=== PATIENT | female | born 1975 | race Caucasian/White ===

== ENCOUNTER 2016-09-07 21:22 | Emergency (ER) | payer OTHER ==
[2016-09-07 21:29] VITALS: BP 114/73
[2016-09-07] MEDS ORDERED: NS 0.9% 1000 ML* 2,000 ML IV ONE (22:15)
[2016-09-07] MEDS ORDERED: Ketorolac INJ* 30 MG/ML 1 ML VIAL IV PUSH ONE (22:15)
[2016-09-07 22:56] LABS: Hematocrit 45 % (35-47); Hemoglobin 15.2 g/dl (12.0-16.0); Mean Corpuscular HGB Conc 34 g/dl (31-36); Mean Corpuscular Hemoglobin 31 pg (27-31); Mean Corpuscular Volume 92 fL (80-97); Mean Platelet Volume 9 um3 (7.4-10.4); Red Blood Count 4.89 10^6/ul (4.0-5.4); Red Cell Distribution Width 15 % (10.5-15); White Blood Count 9.5 10^3/ul (3.5-10.8)
--- NOTE | 2016-09-07 23:05 | RAD ---
INDICATION: Cough COMPARISON: Chest x-ray dated September 13, 2015 TECHNIQUE: PA and lateral views of the chest were obtained. FINDINGS: The heart and mediastinum are normal in size and contour. The lungs are grossly clear. There is no evidence of large pleural effusion. Visualized bones are normal for the patient's age. There is no radiographic evidence of free air beneath the diaphragm IMPRESSION: No radiographic evidence of acute cardiopulmonary disease.
[2016-09-07 23:11] LABS: ALT 36 U/L (7-52); Albumin 4.4 g/dL (3.2-5.2); Alkaline Phosphatase 116 U/L (34-104); Blood Urea Nitrogen 17 mg/dL (6-24); CO2 Carbon Dioxide 24 mmol/L (22-32); Calcium 9.8 mg/dL (8.6-10.3); Chloride 102 mmol/L (101-111); EGFR African American 101.2 (>60); EGFR Non-African American 78.7 (>60); Glucose 149 mg/dL (70-100); Lipase < 10 U/L (11.0-82.0); Sodium 134 mmol/L (133-145); Total Protein 7.4 g/dL (6.4-8.9)
[2016-09-07 23:15] LABS: Add Diff/Slide Review? Slide Review Added; Comments Flag Yes
--- NOTE | 2016-09-07 23:33 | ED ---
Abdominal Pain/Female - HPI Summary HPI Summary: 41 F presents with upper abdominal pain since Tuesday. She admits to anorexia, nausea, vomiting, and constipation. She denies any diarrhea or fevers. She also admits to running out of her inhaler so she has been wheezing more than normal. She also admits to a cough for the past couple days. She denies any dysuria or vaginal discharge. Her has a vasectomy so she denies being . She has had her gallbladder removed last January. She denies experiencing this pain before in the past. Daughter is sick with vomiting a couple days ago but no abdominal pain. - History of Current Complaint Chief Complaint: EDAbdPain Stated Complaint: VOMITING,ABD PAIN Time Seen by Provider: 09/07/16 22:03 Pain Intensity: 8 Allergies/Adverse Reactions: Allergies Allergy/AdvReac Type Severity Reaction Status Date / Time No Known Allergies Allergy Verified 03/14/16 15:14 PMH/Surg Hx/FS Hx/Imm Hx Endocrine/Hematology History: Denies: Hx Anticoagulant Therapy, Hx Diabetes, Hx Thyroid Disease Cardiovascular History: Denies: Hx Congestive Heart Failure, Hx Hypertension, Hx Pacemaker/ICD Respiratory History: Reports: Hx Asthma Denies: Hx Chronic Obstructive Pulmonary Disease (COPD) History: Denies: Hx Renal Disease Musculoskeletal History: Reports: Other Musculoskeletal History - left hip fx Sensory History: Denies: Hx Hearing Aid Neurological History: Denies: Hx Dementia, Hx Seizures Psychiatric History: Reports: Hx Substance Abuse Denies: Hx Panic Disorder - Surgical History Surgery Procedure, Year, and Place: DECEMBER 2015 Infectious Disease History: No Infectious Disease History: Denies: Hx Hepatitis, Hx Human Immunodeficiency Virus (HIV), Traveled Outside the [place] in Last 30 Days - Family History Known Family History: Positive: None Family History: R & n/C - Social History Alcohol Use: None Alcohol Amount: no alcohol use per pt report Hx Substance Use: No Substance Use Type: Reports: Heroin Substance Use Comment - Amount & Last Used: last use may Hx Tobacco Use: Yes Smoking Status (MU): Heavy Every Day Tobacco Smoker Type: Cigarettes Have You Smoked in the Last Year: Yes Review of Systems Negative: Fever Negative: Chest Pain Positive: Cough. Negative: Shortness Of Breath Positive: Abdominal Pain, Vomiting, Nausea. Negative: Diarrhea All Other Systems Reviewed And Are Negative: Yes Physical Exam Triage Information Reviewed: Yes Vital Signs On Initial Exam: Initial Vitals Temp Pulse Resp BP Pulse Ox 99.5 F 94 19 114/73 100 09/07/16 21:27 09/07/16 21:27 09/07/16 21:27 09/07/16 21:27 09/07/16 21:27 Vital Signs Reviewed: Yes Appearance: Positive: Well-Appearing Skin: Positive: Warm, Dry Head/Face: Positive: Normal Head/Face Inspection Eyes: Positive: Normal, Conjunctiva Clear ENT: Positive: Normal ENT inspection, Pharynx normal, TMs normal Respiratory/Lung Sounds: Positive: Clear to Auscultation, Breath Sounds Present Cardiovascular: Positive: Normal, RRR Abdomen Description: Positive: Soft, Other: - moderate tenderness across upper abdomen. Negative: Guarding Bowel Sounds: Positive: Present - Javier Coma Scale Coma Scale Total: 15 Diagnostics - Vital Signs Vital Signs Temp Pulse Resp BP Pulse Ox 09/07/16 21:27 99.5 F 94 19 114/73 100 - Laboratory Lab Results: Lab Results 09/07/16 09/07/16 09/07/16 Range/Units 22:45 22:45 22:45 WBC 9.5 (3.5-10.8) 10^3/ul RBC 4.89 (4.0-5.4) 10^6/ul Hgb 15.2 (12.0-16.0) g/dl Hct 45 (35-47) % MCV 92 (80-97) fL MCH 31 (27-31) pg MCHC 34 (31-36) g/dl RDW 15 (10.5-15) % Plt Count 265 (150-450) 10^3/ul MPV 9 (7.4-10.4) um3 Neut % (Auto) 72.3 (38-83) % Lymph % (Auto) 21.1 L (25-47) % [place] % (Auto) 4.9 (1-9) % Eos % (Auto) 0.1 (0-6) % Baso % (Auto) 1.6 (0-2) % Absolute Neuts (auto) 6.9 (1.5-7.7) 10^3/ul Absolute Lymphs (auto) 2.0 (1.0-4.8) 10^3/ul Absolute Monos (auto) 0.5 (0-0.8) 10^3/ul Absolute Eos (auto) 0 (0-0.6) 10^3/ul Absolute Basos (auto) 0.1 (0-0.2) 10^3/ul Absolute Nucleated RBC 0.01 10^3/ul Nucleated RBC % 0.1 Sodium 134 (133-145) mmol/L Potassium TNP Chloride 102 (101-111) mmol/L Carbon Dioxide 24 (22-32) mmol/L Anion Gap TNP BUN 17 (6-24) mg/dL Creatinine 0.81 (0.51-0.95) mg/dL Est GFR ( Amer) 101.2 (>60) Est GFR (Non-Af Amer) 78.7 (>60) BUN/Creatinine Ratio 21.0 H (8-20) Glucose 149 H (70-100) mg/dL Lactic Acid 0.9 (0.5-2.0) mmol/L Calcium 9.8 (8.6-10.3) mg/dL Total Bilirubin 0.40 (0.2-1.0) mg/dL AST TNP ALT 36 (7-52) U/L Alkaline Phosphatase 116 H (34-104) U/L C-React Prot High Sens 5.02 mg/L Total Protein 7.4 (6.4-8.9) g/dL Albumin 4.4 (3.2-5.2) g/dL Globulin 3.0 (2-4) g/dL Albumin/Globulin Ratio 1.5 (1-3) Lipase < 10 L (11.0-82.0) U/L Result Diagrams: 09/07/16 22:45 09/08/16 01:11 Lab Statement: Any lab studies that have been ordered have been reviewed, and results considered in the medical decision making process. - CT abdomen CT Interpretation: No Acute Changes - no inflammatory process identified in abdomen or pelvix, prominent left adnexal cyst, no adominal masses or collection seen CT Interpretation Completed By: Radiologist Abdominal Pain Fem Course/Dx - Course Course Of Treatment: 41 F presents with upper abdominal pain, nausea and vomiting since Tuesday, states that daughter had vomiting but no adominal pain, on exam tenderness in upper abdominal with no rebound tenderness, ordered labs which were normal and CT which was normal does have adnexeal cyst but that is not were pain is, explained results to patient and patient agrees with plan - Diagnoses Differential Diagnosis: Positive: Gall Bladder Disease, Pancreatitis, Peptic Ulcer Disease Provider Diagnoses: Upper abdominal pain, Nausea and vomiting Discharge - Discharge Plan Condition: Good Disposition: HOME Prescriptions: Ondansetron TAB* [Zofran Tab*] 4 mg PO Q6H PRN #8 tab PRN Reason: Nausea Patient Education Materials: Acute Abdominal Pain (ED) Referrals: Lisa Blake MD [Primary Care Provider] - Additional Instructions: Your pain is not caused by any surgical emergency Use zofran for nausea and vomiting every 6 hours as needed Drink small amounts of fluid as tolerated When able to eat follow BRAT diet: Bananas, rice, applesauce, toast Take ibuprofen or Tylenol for pain as needed every 6 hours Follow up with primary within 5 days Return to ED if develop fever that does not respond to Tylenol or ibuprofen, severe abdominal pain, or any new or worsening symptoms
[2016-09-08] MEDS ORDERED: Ketorolac INJ* 30 MG/ML 1 ML VIAL IV PUSH ONE (01:22)
[2016-09-08] MEDS ORDERED: Iohexol 300* (CONTRAST) 10 ML SDV IV ONE (02:20)
[2016-09-08] MEDS ORDERED: Ondansetron ODT TAB* 4 MG PO ONE (02:59)
--- NOTE | 2016-09-08 08:24 | RAD ---
INDICATION: Abdominal pain. Fever. COMPARISON: CT January 12, 2016 TECHNIQUE: Axial source images were obtained from the hemidiaphragms to the symphysis pubis following administration of oral and intravenous contrast. 81 mL Omnipaque 300 was utilized. Coronal and sagittal reconstructed images were acquired. Lung bases: There is minimal linear change in the left lung base likely representing atelectasis. Liver: The liver is normal in size. There are no masses. There is no ductal dilatation. Gallbladder: Cholecystectomy. Spleen: The spleen is normal in size. There are no masses. Pancreas: There is no focal pancreatic mass or ductal dilatation. Adrenal glands: There is no evidence of adrenal mass. Kidneys: The kidneys are normal in size and position. There are prompt nephrograms and there is prompt excretion bilaterally. There are no renal parenchymal masses. There is a nonobstructive 1 to 2 mm lower pole right renal calculus. Adenopathy: There is no evidence of adenopathy by size criteria. Fluid collections: There are no free or localized fluid collections. Vessels:There are no significant atherosclerotic changes involving the aorta. There is no focal aneurysm. The iliac vessels are normal in caliber. The IVC appears normal. GI tract: There are no acute CT bowel findings. There is no obstruction. The stomach and small bowel appear normal. The lower GI tract is normal. The cecum, ileocecal valve, and terminal ileum appear normal. The appendix is visualized and appear normal. Pelvic organs: The uterus and right adnexa are unremarkable. There is a 3.6 and regular left adnexal cyst Bladder: There are no bladder masses. Abdominal and pelvic soft tissues: The extraperitoneal abdominal and pelvic soft tissues appear normal.. Osseous structures: There are no acute osseous findings. Other: None IMPRESSION: 1. Minimal left basilar atelectasis 2. Cholecystectomy. 3. No acute inflammatory process. 4. 3.6 cm left adnexal cyst. Suggest follow-up ultrasonography
== END 2016-09-08 03:45 | disposition home or self-care (01) ==
LOC: ED 21:22
DX: R10.10 Upper abdominal pain, unspecified (principal); R11.2 Nausea with vomiting, unspecified; F17.210 Nicotine dependence, cigarettes, uncomplicated
CPT/HCPCS: 36415; 71020; 74177; 80053; 83605; 83690; 85025; 86141; 86703; 96360; 96374; 96376; 99283; A9270-GY; J1885; Q9967

== ENCOUNTER 2016-09-09 04:10 | Emergency (ER) | payer OTHER ==
[2016-09-09] MEDS ORDERED: Al Hydrox/Mg Hydrox/Simet LIQ* 30 ML UDC PO ONE ×2 (04:36→11:57)
[2016-09-09] MEDS ORDERED: Lidocaine 2% VISCOUS* 15 ML UDC PO ONE (04:36)
[2016-09-09] MEDS ORDERED: NS 0.9% 1000 ML* 2,000 ML IV ONE (04:36)
[2016-09-09] MEDS ORDERED: Pantoprazole IV* 40 MG IV ONE (04:36)
[2016-09-09] MEDS ORDERED: Ondansetron INJ* 2 MG/ML VIAL IV ONE ×3 (04:36→08:23)
[2016-09-09 05:03] LABS: Hematocrit 45 % (35-47); Mean Corpuscular HGB Conc 34 g/dl (31-36); Mean Corpuscular Hemoglobin 31 pg (27-31); Mean Corpuscular Volume 92 fL (80-97); Mean Platelet Volume 9 um3 (7.4-10.4); Red Blood Count 4.87 10^6/ul (4.0-5.4); Red Cell Distribution Width 15 % (10.5-15); White Blood Count 12.7 10^3/ul (3.5-10.8)
[2016-09-09 05:07] LABS: ALT 27 U/L (7-52); AST 17 U/L (13-39); Albumin 4.2 g/dL (3.2-5.2); Alkaline Phosphatase 106 U/L (34-104); Anion Gap 10 mmol/L (2-11); BUN/Creatinine Ratio 21.9 (8-20); Blood Urea Nitrogen 23 mg/dL (6-24); C Reactive Protein 3.45 mg/L (< 5.00); CO2 Carbon Dioxide 28 mmol/L (22-32); Calcium 9.4 mg/dL (8.6-10.3); Chloride 99 mmol/L (101-111); EGFR Non-African American 58.3 (>60); Globulin 3.2 g/dL (2-4); Glucose 108 mg/dL (70-100); Lipase 18 U/L (11.0-82.0); Potassium 3.7 mmol/L (3.5-5.0); Sodium 137 mmol/L (133-145); Total Protein 7.4 g/dL (6.4-8.9)
[2016-09-09] MEDS ORDERED: Ketorolac INJ* 30 MG/ML 1 ML VIAL IV ONE (06:51)
[2016-09-09] MEDS ORDERED: Iodixanol* (CONTRAST) 320 MG/ML 100 ML SDV IV ONE (07:53)
[2016-09-09] MEDS ORDERED: Ondansetron INJ* 2 MG/ML VIAL ONE (08:14)
[2016-09-09] MEDS ORDERED: Ketorolac INJ* 30 MG/ML 1 ML VIAL IV PUSH ONE (10:19)
[2016-09-09] MEDS ORDERED: Metoclopramide IV* 5 MG/ML 2 ML VIAL IV ONE (10:19)
--- NOTE | 2016-09-09 11:28 | RAD ---
INDICATION: Abdominal pain COMPARISON: CT previous day TECHNIQUE: Noncontrast axial source images were acquired from the level hemidiaphragms to the symphysis pubis pubis. There is no IV contrast due to difficulty with the IV. There is residual contrast within the colon from yesterday's examination. Lung bases: The lung bases are clear. Liver: The liver is normal in size. Noncontrast imaging shows no evidence of a hepatic mass or ductal dilatation. Gallbladder: Cholecystectomy. Spleen: The spleen is normal in size. The noncontrast CT appearance is normal. Pancreas: Noncontrast imaging shows no pancreatic mass or ductal dilitation. Adrenal glands: No masses are identified. Kidneys/Bladder: There is a 1 mm, nonobstructive lower pole right renal calculus. CT evidence of hydronephrosis. Noncontrast imaging shows no evidence of a renal mass. The bladder is unremarkable.. Adenopathy: There is no evidence of intraperitoneal or retroperitoneal adenopathy. Evaluation is limited without oral contrast. Fluid collections: There are no free or localized fluid collections. Vessels: The aorta and iliac vessels are normal in caliber. There are no significant atherosclerotic changes. The IVC appears normal Pelvic organs: The uterus and right adnexa are unremarkable. The left adnexal cyst measures minimally smaller measuring 3.2 cm on today's examination GI tract: Evaluation of the stomach and small bowel is limited as there is no oral contrast. There is residual contrast within the colon which is normal in caliber. The appendix is normal. There are no findings of obstruction Soft tissues: No soft tissue abnormalities of the extraperitoneal abdomen or pelvis are identified. Osseous structures: There are no acute osseous findings. IMPRESSION: 1. No acute CT findings. No mass or inflammatory change. 2. Cholecystectomy. 3. 1 mm nonobstructive right renal calculus consistent with an incidental finding 4. 3.2 cm left adnexal cyst. The cyst appears minimally smaller.
[2016-09-09 12:15] VITALS: BP 128/81
--- NOTE | 2016-09-09 13:11 | ED ---
Jules Whitney Matthew, scribed for Nii Schmitz MD on 09/09/16 at 1239 . Progress - Progress Note Progress Note: The patient is a sign out from Dr. Candelario. She presented to the ED for abdominal pain. Currently here abdomen is soft and she is feeling much better. The CT results showed no obstruction. Lab results showed an elevated WBC. She will be discharged home and follow-up with her PCP. She is in stable condition. Course/Dx - Diagnoses Provider Diagnoses: Abdominal pain, Dehydration The documentation as recorded by the Jules harden Matthew accurately reflects the service I personally performed and the decisions made by me, Nii Schmitz MD.
--- NOTE | 2016-09-20 22:10 | ED ---
Sandy Whitney SooYoung, scribed for Pancho Candelario MD on 09/09/16 at 0450 . Abdominal Pain/Female - HPI Summary HPI Summary: A 41 y/o F [place] presents to ED with c/o vomiting onset - History of Current Complaint Chief Complaint: EDNauseaVomitDiarrh Stated Complaint: ABD PAIN/VOMITING Time Seen by Provider: 09/09/16 04:17 Hx Obtained From: Patient, EMS - report Onset/Duration: Lasting Hours, Still Present Severity Currently: Severe Pain Intensity: 10 Pain Scale Used: 0-10 Numeric Allergies/Adverse Reactions: Allergies Allergy/AdvReac Type Severity Reaction Status Date / Time No Known Allergies Allergy Verified 09/09/16 07:54 PMH/Surg Hx/FS Hx/Imm Hx Previously Healthy: No Endocrine/Hematology History: Denies: Hx Anticoagulant Therapy, Hx Diabetes, Hx Thyroid Disease Cardiovascular History: Denies: Hx Congestive Heart Failure, Hx Hypertension, Hx Pacemaker/ICD Respiratory History: Reports: Hx Asthma Denies: Hx Chronic Obstructive Pulmonary Disease (COPD) History: Denies: Hx Dialysis, Hx Renal Disease Musculoskeletal History: Reports: Other Musculoskeletal History - left hip fx Sensory History: Denies: Hx Hearing Aid Neurological History: Denies: Hx Dementia, Hx Seizures Psychiatric History: Reports: Hx Substance Abuse Denies: Hx Panic Disorder - Surgical History Surgery Procedure, Year, and Place: DECEMBER 2015 Infectious Disease History: No Infectious Disease History: Denies: Hx Hepatitis, Hx Human Immunodeficiency Virus (HIV), Traveled Outside the [place] in Last 30 Days - Family History Family History: R & n/C - Social History Occupation: Unemployed - OTHER Lives: Alone Alcohol Use: None Alcohol Amount: no alcohol use per pt report Hx Substance Use: Yes Substance Use Type: Reports: Heroin Substance Use Comment - Amount & Last Used: last use may Hx Tobacco Use: Yes Smoking Status (MU): Heavy Every Day Tobacco Smoker Type: Cigarettes Have You Smoked in the Last Year: Yes Review of Systems All Other Systems Reviewed And Are Negative: Yes Physical Exam Vital Signs On Initial Exam: Initial Vitals Temp Pulse Resp BP Pulse Ox 99.7 F 71 18 148/85 97 09/09/16 04:22 09/09/16 04:22 09/09/16 04:22 09/09/16 04:22 09/09/16 04:22 Diagnostics - Vital Signs Vital Signs Temp Pulse Resp BP Pulse Ox 09/09/16 04:22 99.7 F 71 18 148/85 97 - Laboratory Lab Results: Lab Results 09/09/16 09/09/16 09/09/16 Range/Units 04:28 04:28 04:28 WBC 12.7 H (3.5-10.8) 10^3/ul RBC 4.87 (4.0-5.4) 10^6/ul Hgb 15.0 (12.0-16.0) g/dl Hct 45 (35-47) % MCV 92 (80-97) fL MCH 31 (27-31) pg MCHC 34 (31-36) g/dl RDW 15 (10.5-15) % Plt Count 264 (150-450) 10^3/ul MPV 9 (7.4-10.4) um3 Neut % (Auto) 71.4 (38-83) % Lymph % (Auto) 21.9 L (25-47) % [place] % (Auto) 5.1 (1-9) % Eos % (Auto) 0.7 (0-6) % Baso % (Auto) 0.9 (0-2) % Absolute Neuts (auto) 9.1 H (1.5-7.7) 10^3/ul Absolute Lymphs (auto) 2.8 (1.0-4.8) 10^3/ul Absolute Monos (auto) 0.6 (0-0.8) 10^3/ul Absolute Eos (auto) 0.1 (0-0.6) 10^3/ul Absolute Basos (auto) 0.1 (0-0.2) 10^3/ul Absolute Nucleated RBC 0 10^3/ul Nucleated RBC % 0 Sodium 137 (133-145) mmol/L Potassium 3.7 (3.5-5.0) mmol/L Chloride 99 L (101-111) mmol/L Carbon Dioxide 28 (22-32) mmol/L Anion Gap 10 (2-11) mmol/L BUN 23 (6-24) mg/dL Creatinine 1.05 H (0.51-0.95) mg/dL Est GFR ( Amer) 75.0 (>60) Est GFR (Non-Af Amer) 58.3 (>60) BUN/Creatinine Ratio 21.9 H (8-20) Glucose 108 H (70-100) mg/dL Lactic Acid 1.8 (0.5-2.0) mmol/L Calcium 9.4 (8.6-10.3) mg/dL Total Bilirubin 0.50 (0.2-1.0) mg/dL AST 17 (13-39) U/L ALT 27 (7-52) U/L Alkaline Phosphatase 106 H (34-104) U/L C-Reactive Protein 3.45 (< 5.00) mg/L Total Protein 7.4 (6.4-8.9) g/dL Albumin 4.2 (3.2-5.2) g/dL Globulin 3.2 (2-4) g/dL Albumin/Globulin Ratio 1.3 (1-3) Lipase 18 (11.0-82.0) U/L Beta HCG, Quant < 0.60 mIU/mL Result Diagrams: 09/09/16 04:28 09/09/16 04:28 Lab Statement: Any lab studies that have been ordered have been reviewed, and results considered in the medical decision making process. Abdominal Pain Fem Course/Dx - Course Course Of Treatment: DISPOSITION PENDING AT SHIFT CHANGE, DISCHARGE HOME STABLE. - Diagnoses Provider Diagnoses: Abdominal pain, Dehydration Discharge - Discharge Plan Condition: Stable Disposition: HOME Prescriptions: Ondansetron ODT TAB* [Zofran Odt TAB*] 4 mg PO Q8H PRN #20 tab.odt PRN Reason: pain oxyCODONE/Acetamin 5/325 MG* [Percocet 5/325 TAB*] 1 tab PO Q6H PRN #20 tab MDD 4 PRN Reason: pain Patient Education Materials: Oxycodone/Acetaminophen (By mouth), Ondansetron ( By mouth), Dehydration (ED), Acute Abdominal Pain (ED) Referrals: Lisa Blake MD [Primary Care Provider] - 1 Day Additional Instructions: Please follow-up with your primary care physician in 1 day. The documentation as recorded by the Sandy harden SooYoung accurately reflects the service I personally performed and the decisions made by me, Pancho Candelario MD.
== END 2016-09-09 13:15 | disposition home or self-care (01) ==
LOC: ED 04:10
DX: R10.9 Unspecified abdominal pain (principal); E86.0 Dehydration
CPT/HCPCS: 36415; 74176; 80053; 83605; 83690; 84702; 85025; 86140; 96360; 96365; 96374; 96375; 99283; A9270-GY; J1885; J2405; J2765

== ENCOUNTER 2018-03-02 23:39 | Emergency (ER) | payer SELFPAY ==
[2018-03-03] MEDS ORDERED: Tetan/Diph/Pertus SYR(Tdap)* 0.5 ML SYR(BOOSTRIX) use SYR IM ONE (02:33)
--- NOTE | 2018-03-03 02:40 | ED ---
Upper Extremity Pain - HPI Summary HPI Summary: Pt is a 43 y/o F brought in by EMS due to a laceration on right thumb which occurred around 2300 on 03/02/18. Pt was trimming weeds, fell down and received the laceration from the machete she was using. On triage, she rates pain 6/10, describes pain as sharp, and notes palpations worsen pain. Pt claims she is not on blood thinners. - History of Current Complaint Chief Complaint: EDExtremityUpper Stated Complaint: RIGHT HAND LAC Time Seen by Provider: 03/03/18 02:05 Hx Obtained From: Patient Mechanism Of Injury: Other - laceration from machete Onset/Duration: Started Hours Ago - 2300 on 03/02, Still Present Timing: Constant Severity Currently: Mild - 6/10 Pain Location: Hand - right hand Character: Sharp Aggravating Factor(s): Other - palpations Alleviating Factor(s): Nothing - Allergies/Home Medications Allergies/Adverse Reactions: Allergies Allergy/AdvReac Type Severity Reaction Status Date / Time No Known Allergies Allergy Verified 03/02/18 23:42 Home Medications: Home Medications NK [No Home Medications Reported] 03/03/18 [History Confirmed 03/03/18] PMH/Surg Hx/FS Hx/Imm Hx Endocrine/Hematology History: Denies: Hx Anticoagulant Therapy, Hx Diabetes, Hx Thyroid Disease Cardiovascular History: Denies: Hx Congestive Heart Failure, Hx Hypertension, Hx Pacemaker/ICD Respiratory History: Reports: Hx Asthma Denies: Hx Chronic Obstructive Pulmonary Disease (COPD) History: Denies: Hx Dialysis, Hx Renal Disease Musculoskeletal History: Reports: Other Musculoskeletal History - left hip fx Sensory History: Denies: Hx Hearing Aid Neurological History: Denies: Hx Dementia, Hx Seizures Psychiatric History: Reports: Hx Substance Abuse Denies: Hx Panic Disorder - Surgical History Surgery Procedure, Year, and Place: [place] DECEMBER 2015 - Immunization History Immunizations Up to Date: No Infectious Disease History: No Infectious Disease History: Denies: Hx Hepatitis, Hx Human Immunodeficiency Virus (HIV), Traveled Outside the [place] in Last 30 Days - Family History Known Family History: Negative: Blood Disorder Family History: R & n/C - Social History Alcohol Use: None Alcohol Amount: no alcohol use per pt report Hx Substance Use: Yes Substance Use Type: Reports: Heroin Substance Use Comment - Amount & Last Used: last use may Hx Tobacco Use: Yes Smoking Status (MU): Heavy Every Day Tobacco Smoker Type: Cigarettes Have You Smoked in the Last Year: Yes Review of Systems Negative: Fever Positive: Other - laceration on palm of right hand All Other Systems Reviewed And Are Negative: Yes Physical Exam - Summary Physical Exam Summary: Appearance: Well-appearing, Well-nourished, lying in bed comfortably Skin: Warm, dry, no obvious rash Eyes: sclera anicteric, no conjunctival pallor ENT: mucous membranes moist, pharynx appears normal Neck: Supple, nontender Respiratory: Clear to auscultation, no signs of respiratory distress Cardiovascular: Normal S1, S2. No murmurs. Normal distal pulses in tibial and radial bilaterally. Abdomen: Soft, nontender, normal active bowel sounds present Musculoskeletal: Normal, Strength/ROM Intact Neurological: A&Ox3, awake and alert, mentation is normal, speech is fluent and appropriate Psychiatric: affect is normal, does not appear anxious or depressed Triage Information Reviewed: Yes Vital Signs On Initial Exam: Initial Vitals Temp Pulse Resp BP Pulse Ox 98.3 F 89 16 134/94 98 03/02/18 23:43 03/02/18 23:43 03/02/18 23:43 03/02/18 23:43 03/02/18 23:43 Vital Signs Reviewed: Yes Procedures - Laceration/Wound Repair 1 Location: upper extremity - right thumb Description: Linear Anesthesia: Local, 2.0%, Epi Length, Depth and Shape: 2 cm Betadine Prep?: Yes - irrigated with tap water copiously Laceration/Wound Explored: clean Closure: Single Layer Suture Type: Nylon Diagnostics - Vital Signs Vital Signs Temp Pulse Resp BP Pulse Ox 03/02/18 23:43 98.3 F 89 16 134/94 98 - Laboratory Lab Statement: Any lab studies that have been ordered have been reviewed, and results considered in the medical decision making process. Course/Dx - Diagnoses Provider Diagnoses: Laceration of right thumb Discharge - Sign-Out/Discharge Documenting (check all that apply): Patient Departure - Discharge Plan Condition: Good Disposition: HOME Patient Education Materials: Care For Your Stitches (ED) Referrals: Lisa Blake MD [Primary Care Provider] - - Billing Disposition and Condition Condition: GOOD Disposition: Home
[2018-03-03 03:38] VITALS: BP 147/87
== END 2018-03-03 03:37 | disposition home or self-care (01) ==
LOC: ED 23:39
DX: S61.011A Laceration without foreign body of right thumb without damage to nail, initial encounter (principal); W26.0XXA Contact with knife, initial encounter; Y93.H2 Activity, gardening and landscaping; Y92.096 Garden or yard of other non-institutional residence as the place of occurrence of the external cause; Z23 Encounter for immunization; F17.210 Nicotine dependence, cigarettes, uncomplicated
CPT/HCPCS: 12001; 90471; 90715; 99282

== ENCOUNTER 2018-07-17 20:09 | Emergency (ER) | payer SELFPAY ==
--- NOTE | 2018-07-17 21:59 | ED ---
Skin Complaint - HPI Summary HPI Summary: A 43 y/o F presents to ED with c/o worsening skin blistering to L outer thigh onset approximately 1.5-2 weeks ago. Pt says it initially started as a boil approximately 2.5 months ago. The area is large (11cm x 11cm), sore and erythematous with peeling skin. She has been cleaning the area 3x a day with peroxide and a topical ointment. She keeps it covered. Pt denies fever and states being healthy otherwise. She did have a boil on her RLE previously. - History of Current Complaint Chief Complaint: EDRashSkinAbscess Time Seen by Provider: 07/17/18 21:54 Stated Complaint: BITE/LT LEG ISSUE Hx Obtained From: Patient, Family/Residential Treatment Counselor Onset/Duration: Started Weeks Ago, Still Present Timing: Constant Onset Severity: Moderate Current Severity: Severe Pain Intensity: 7 Pain Scale Used: 0-10 Numeric Skin Location: Leg - L thigh Character: Redness, Painful Associated Signs & Symptoms: Negative - Additional Pertinent History Primary Care Physician: PAULINA - Allergy/Home Medications Allergies/Adverse Reactions: Allergies Allergy/AdvReac Type Severity Reaction Status Date / Time No Known Allergies Allergy Verified 07/17/18 20:18 PMH/Surg Hx/FS Hx/Imm Hx Previously Healthy: No Endocrine/Hematology History: Denies: Hx Anticoagulant Therapy, Hx Diabetes, Hx Thyroid Disease Cardiovascular History: Denies: Hx Congestive Heart Failure, Hx Hypertension, Hx Pacemaker/ICD Respiratory History: Reports: Hx Asthma Denies: Hx Chronic Obstructive Pulmonary Disease (COPD) History: Denies: Hx Dialysis, Hx Renal Disease Musculoskeletal History: Reports: Other Musculoskeletal History - left hip fx Sensory History: Denies: Hx Hearing Aid Neurological History: Denies: Hx Dementia, Hx Seizures Psychiatric History: Reports: Hx Substance Abuse Denies: Hx Panic Disorder - Surgical History Surgery Procedure, Year, and Place: DECEMBER 2015 Infectious Disease History: No Infectious Disease History: Denies: Hx Hepatitis, Hx Human Immunodeficiency Virus (HIV), Traveled Outside the [place] in Last 30 Days - Family History Known Family History: Negative: Blood Disorder - Social History Occupation: Unemployed Lives: Alone Alcohol Use: None Alcohol Amount: no alcohol use per pt report Hx Substance Use: Yes Substance Use Type: Reports: Heroin Substance Use Comment - Amount & Last Used: last use may Hx Tobacco Use: Yes Smoking Status (MU): Heavy Every Day Tobacco Smoker Type: Cigarettes Have You Smoked in the Last Year: Yes Review of Systems Negative: Fever Skin: Other - pos: large area of sore, red, sloughing skin on L thigh All Other Systems Reviewed And Are Negative: Yes Physical Exam - Summary Physical Exam Summary: Appearance: Well-appearing, Well-nourished, lying in bed comfortable Skin: Warm, dry, no obvious rash. There is a large 56h08ls round area of cellulitis on lateral L thigh with superficial skin sloughing and purulent exudates. Eyes: sclera anicteric, no conjunctival pallor ENT: mucous membranes moist Neck: deferred Respiratory: No signs of respiratory distress Cardiovascular: Appears well perfused, pulses are nml Abdomen: deferred Musculoskeletal: Moving all 4 extremities without obvious discomfort Neurological: Awake and alert, mentation is normal, speech is fluent and appropriate Psychiatric: affect is normal, does not appear anxious or depressed Triage Information Reviewed: Yes Vital Signs On Initial Exam: Initial Vitals Temp Pulse Resp BP Pulse Ox 99.1 F 96 16 146/78 96 07/17/18 20:12 07/17/18 20:12 07/17/18 20:12 07/17/18 20:12 07/17/18 20:12 Vital Signs Reviewed: Yes Diagnostics - Vital Signs Vital Signs Temp Pulse Resp BP Pulse Ox 07/17/18 20:12 99.1 F 96 16 146/78 96 - Laboratory Result Diagrams: 07/17/18 22:32 07/17/18 22:32 Lab Statement: Any lab studies that have been ordered have been reviewed, and results considered in the medical decision making process. - CT LLE CT Interpretation Completed By: Radiologist Summary of CT Findings: IMPRESSION: 1. No abscess or soft tissue gas in the left thigh. 2. Shotty possible reactive left inguinal adenopathy. 3. No other acute disease seen. As above. ED provider has reviewed this report. Course/Dx - Course Assessment/Plan: Pt is a 43 y/o F presents with a large 33e05to round area of cellulitis on lateral L thigh with superficial skin sloughing and purulent exudates. Pt says it initially started as a boil approximately 2.5 months ago. Pt denies fever and states being healthy otherwise. Lab work is unremarkable. Left LE CT shows "1. No abscess or soft tissue gas in the left thigh. 2. Shotty possible reactive left inguinal adenopathy. 3. No other acute disease seen. As above.". Consulted with the hospitlist, Dr. Siegel, who saw the patient in the ED. She recommended the patient stop using peroxide on the wound and follow up with the wound clinic. Will discharge patient home. - Diagnoses Provider Diagnoses: Cellulitis - Physician Notifications Discussed Care Of Patient With: Alisson Siegel - hospitalist Time Discussed With Above Provider: 00:06 Instructed by Provider To: MD Will See In ED - After evaluating pt, consulted again at 00:32. Recommended pt stop using the peroxide, f/u with wound clinic. Discharge - Sign-Out/Discharge Documenting (check all that apply): Patient Departure - DC - Discharge Plan Condition: Good Disposition: HOME Prescriptions: Cephalexin CAP* [Keflex CAP*] 500 mg PO QID #40 cap Referrals: Lisa Blake MD [Primary Care Provider] - [facility] [Outside] - Billing Disposition and Condition Condition: GOOD Disposition: Home - Attestation Statements Document Initiated by Scribe: Yes Documenting Scribe: Akila Delgado Provider For Whom Scribe is Documenting (Include Credential): Dr. Fernandez Oconnell MD Scribe Attestation: Akila Whitney scribed for Dr. Fernandez Oconnell MD on 07/18/18 at 0510. Scribe Documentation Reviewed: Yes Provider Attestation: The documentation as recorded by the Akila harden accurately reflects the service I personally performed and the decisions made by me, Dr. Fernandez Oconnell MD
[2018-07-17 22:48] LABS: ABS Basophils 0.1 10^3/ul (0-0.2); ABS Eosinophils 0.2 10^3/ul (0-0.6); ABS Lymphocytes 4.1 10^3/ul (1.0-4.8); ABS Monocytes 0.6 10^3/ul (0-0.8); ABS Nucleated RBC 0 10^3/ul; Eosinophil % 1.5 %; Hematocrit 42 % (35-47); Hemoglobin 14.2 g/dl (12.0-16.0); Mean Corpuscular HGB Conc 34 g/dl (31-36); Mean Corpuscular Hemoglobin 30 pg (27-31); Mean Corpuscular Volume 88 fL (80-97); Mean Platelet Volume 8.7 fL (7.4-10.4); Nucleated Red Blood Cells % 0.1; Platelet Count 336 10^3/ul (150-450); Red Blood Count 4.75 10^6/ul (4.00-5.40); Red Cell Distribution Width 15 % (10.5-15); White Blood Count 9.9 10^3/ul (3.5-10.8)
[2018-07-17 23:02] LABS: EGFR Non-African American 71.8 (>60)
[2018-07-17] MEDS ORDERED: Iohexol 300* (CONTRAST) 10 ML SDV IV ONE (23:14)
[2018-07-18] MEDS ORDERED: Cephalexin CAP* 500 MG PO ONE (00:35)
[2018-07-18 01:34] VITALS: BP 123/89
--- NOTE | 2018-07-18 06:29 | CONS ---
CC: Lisa Blake MD CONSULTATION REPORT: DATE OF CONSULT: 07/18/18 TIME OF EVALUATION: 0000 PRIMARY CARE PHYSICIAN: Lisa Blake MD CHIEF COMPLAINT: Rash. HISTORY OF PRESENT ILLNESS: This is a 43-year-old female with unremarkable past medical history, who presents to the emergency room with worsening left lower extremity rash. The patient states about 2 months ago, it started on as a boil on her left lower extremity, it popped at that time and pus and little blood had come out. When it spread, it had made a small hole there and it continued to develo p redness. She has been cleaning it with hydrogen peroxide 3 times a day and then putting Vaseline o suman it. The skin has become more irritated, red, swollen and painful. She denies any further purule nt drainage. No fevers. No nausea, vomiting, or diarrhea. No abdominal pain. She is acting fine. No history of MRSA in the past. She states she had a boil on the backside of her leg several years ago. Otherwise, remaining review of systems is negative. In the emergency room, the patient had labs and imaging and was deferred to the hospitalist service f or consultation. PAST MEDICAL HISTORY: 1. History of hepatitis C. 2. History of boils. MEDICATIONS: None. ALLERGIES: No known drug allergies. SOCIAL HISTORY: The patient is unemployed. She is here with her fiance, who is her healthcare proxy as well as her mother. She smokes half a pack per day for 20 years. No alcohol or illicit drug use . CODE STATUS: Full code. REVIEW OF SYSTEMS: A 14-point review of systems as mentioned in the HPI, otherwise negative. FAMILY HISTORY: Reviewed and noncontributory. PHYSICAL EXAM: Vitals: Temp 99.1, pulse rate 82, respiratory rate 16, oxygen saturation 98% on emir m air, blood pressure 114/76. General: No acute distress, resting comfortably with her fiance at th e bedside. HEENT: Head normocephalic. Pupils equal, reactive, and anicteric. Oropharynx: Mucous m embranes are moist. Neck: Supple. No nuchal rigidity. Cardiac: Regular rate and rhythm. Soft sys tolic murmur heard throughout. Respiratory: Diminished breath sounds. No wheeze, rhonchi or rales. She does have a wet cough notable. Abdomen: Soft, nontender, nondistended. Extremities: The pat ient with a 10 x 10 circular erythematous lesion on her left lower lateral upper extremity with some erythematous ulceration. No fluctuance. There is purulent drainage noted. +2 DPs. No calf asymmet ry. Neurologic: Alert and oriented x3. No gross focal neurological deficits. DIAGNOSTIC STUDIES/LAB DATA: White count 9.9, hemoglobin 14.2, hematocrit 42, platelets 336. Sodium 137, chloride 106, bicarb 26, BUN 17, creatinine 0.86. CRP is 4. Radiographic data, lower extremity CT no abscess or soft tissue gas in the left side. Shotty, possib le reactive left inguinal adenopathy, no other acute disease. ASSESSMENT: This is a 43-year-old female with a past medical history of a boil, who presents to the emergency room with worsening left lower extremity lesion. I agree this is cellulitis. I suspect he r worsening progression of her cellulitis is contact dermatitis and irritation from the hydrogen maria elena xide that she is using 3 times a day causing tissue damage. There is no necrosis. There is no under lying abscess. Her labs and her vitals are not consistent with sepsis. My recommendation is antibio tics for superficial cellulitis. She should follow up with Wound Care for wound care management, but my recommendation if she is not able to make it to Wound Care, to keep the area open as much as poss ible, avoiding further use of the hydrogen peroxide, and to monitor her lesion closely. If this cont inues to worsen, she should follow up with her primary care physician or return to the emergency room . I spoke with Dr. Oconnell who is agreeable to the plan. We plan to discharge her home. PATIENT TIME: Greater than 35 minutes spent doing the consultation, more than half time spent in dir ect patient contact. [id number]/[facility] #: [id number]
--- NOTE | 2018-07-19 08:48 | ED ---
Progress - Progress Note Progress Note: Patient's preliminary wound culture revealed pseudomonas aeruginosa. She was placed on Keflex and advised to follow up with wound clinic. Final cultures pending. Course/Dx - Diagnoses Provider Diagnoses: Cellulitis - Provider Notifications Time Discussed With Above Provider: 00:06 Instructed by Provider To: Will See In ED - After evaluating pt, consulted again at 00:32. Recommended pt stop using the peroxide, f/u with wound clinic. Discharge - Sign-Out/Discharge Documenting (check all that apply): Post-Discharge Follow Up - Discharge Plan Condition: Good Disposition: HOME Prescriptions: Cephalexin CAP* [Keflex CAP*] 500 mg PO QID #40 cap Referrals: [facility] [Outside] Lisa Blake MD [Primary Care Provider] - - Billing Disposition and Condition Condition: GOOD Disposition: Home
== END 2018-07-18 01:47 | disposition home or self-care (01) ==
LOC: ED 20:09
DX: L03.116 Cellulitis of left lower limb (principal); F17.210 Nicotine dependence, cigarettes, uncomplicated
CPT/HCPCS: 36415; 80048; 83605; 85025; 85652; 86140; 87070; 87077; 87186; 87205; 99284; A9270-GY; Q9967